=== PATIENT | female | born 1990 | race Asian ===

== ENCOUNTER 2017-06-30 13:09 | Emergency (ER) | payer BC, MEDICAID ==
[~2017-06-30] VITALS: Ht 157.5 cm; Wt 100.4 kg
[~2017-06-30 13:09] MED LIST: MEDR150D3 IM; PAIN MED PEG
[2017-06-30 14:34] LABS: BASOPHILS # (AUTO) 0.02 x10^3/uL (0-0.1); BASOPHILS % (AUTO) 0 % (0-1); EOSINOPHILS # (AUTO) 0.18 x10^3/uL (0-0.4); EOSINOPHILS % (AUTO) 2 % (1-7); LYMPHOCYTES # (AUTO) 1.05 x10^3/uL (1-3.4); LYMPHOCYTES % (AUTO) 13 % (22-44); MD NO; MEAN CORPUSCULAR HEMOGLOBIN 27.5 pg (27.0-34.8); MEAN CORPUSCULAR HGB CONC 33.2 g/dL (32.4-35.8); MEAN CORPUSCULAR VOLUME 82.8 fL (80-100); MEAN PLATELET VOLUME 7.5 fL (7.4-10.4); MONOCYTES # (AUTO) 0.68 x10^3/uL (0.2-0.8); MONOCYTES % (AUTO) 9 % (2-9); NEUTROPHILS % (AUTO) 76 % (42-75); PLATELET COUNT 315 x10^3/uL (130-400); RED BLOOD COUNT 5.49 x10^6/uL (3.82-5.3); RED CELL DISTRIBUTION WIDTH 16.3 % (9.6-15.2)
[2017-06-30 14:46] LABS: ALBUMIN 3.8 g/dL (3.4-5.0); ANION GAP 8 mmol/L (5-15); CALCIUM 8.5 mg/dL (8.5-10.1); CHLORIDE 104 mmol/L (98-107); CREATININE 0.72 mg/dL (0.55-1.02)
[2017-06-30 15:00] VITALS: BP 133/74
[2017-06-30 16:14] LABS: MICROSCOPIC INDICATED
[2017-06-30 16:23] LABS: CULTURE INDICATED? NO
== END 2017-06-30 17:07 | disposition home or self-care (01) ==
LOC: ED 16:09
DX: O20.0 Threatened abortion (principal)
CPT/HCPCS: 36415; 76801; 80048; 81001; 82040; 84702; 85025; 86901; 99285

== ENCOUNTER 2017-07-28 23:22 | Emergency (ER) | payer BC ==
[~2017-07-28] VITALS: Ht 157.5 cm; Wt 98.9 kg
[2017-07-29] MEDS ORDERED: SODIUM CHLORIDE FLUSH 10ML SYR IVF ONE (00:30)
[2017-07-29] MEDS ORDERED: SODIUM CHLORIDE 0.9% 1,000ML IVBOLUS ONE (00:30)
[2017-07-29] MEDS ORDERED: ONDANSETRON 2MG/ML, 2ML IVPush ONE (00:30)
[2017-07-29] MEDS ORDERED: MAALOX/HYOSCYAMINE/LIDOCAINE 45 ML BTL ONE (00:47)
[2017-07-29 00:50] LABS: ALANINE AMINOTRANSFERASE 19 U/L (12-78); ANION GAP 6 mmol/L (5-15); CALCIUM 8.7 mg/dL (8.5-10.1); CHLORIDE 107 mmol/L (98-107); CREATININE 0.53 mg/dL (0.55-1.02)
[2017-07-29 01:01] LABS: BASOPHILS # (AUTO) 0.02 x10^3/uL (0-0.1); BASOPHILS % (AUTO) 0 % (0-1); EOSINOPHILS # (AUTO) 0.36 x10^3/uL (0-0.4); EOSINOPHILS % (AUTO) 5 % (1-7); LYMPHOCYTES # (AUTO) 2.23 x10^3/uL (1-3.4); LYMPHOCYTES % (AUTO) 28 % (22-44); MD NO; MEAN CORPUSCULAR HGB CONC 33.8 g/dL (32.4-35.8); MEAN CORPUSCULAR VOLUME 82.8 fL (80-100); MEAN PLATELET VOLUME 7.4 fL (7.4-10.4); MONOCYTES # (AUTO) 0.57 x10^3/uL (0.2-0.8); MONOCYTES % (AUTO) 7 % (2-9); NEUTROPHILS # (AUTO) 4.83 x10^3/uL (1.8-6.8); NEUTROPHILS % (AUTO) 60 % (42-75); PLATELET COUNT 284 x10^3/uL (130-400); RED CELL DISTRIBUTION WIDTH 15.4 % (9.6-15.2)
[2017-07-29 01:03] LABS: MICROSCOPIC NOT IND
[2017-07-29 01:08] LABS: ALKALINE PHOSPHATASE 63 U/L (45-117); BILIRUBIN,TOTAL 0.2 mg/dL (0.2-1.0); TOTAL PROTEIN 6.8 g/dL (6.4-8.2)
[2017-07-29 01:08] LABS: CULTURE INDICATED? NO
[2017-07-29] MEDS ORDERED: ONDANSETRON ODT 4 MG ONE (01:15)
[2017-07-29 01:56] VITALS: BP 118/76
== END 2017-07-29 01:56 | disposition home or self-care (01) ==
LOC: ED 23:47
DX: O26.891 Other specified pregnancy related conditions, first trimester (principal); R10.84 Generalized abdominal pain; Z3A.12 12 weeks gestation of pregnancy; Z88.8 Allergy status to other drugs, medicaments and biological substances; Z90.49 Acquired absence of other specified parts of digestive tract
CPT/HCPCS: 36415; 76801; 80053; 81003; 84702; 85025; 86901; 96374; 99285; J2405; J7030

== ENCOUNTER 2017-10-08 22:56 | Outpatient (CLI) | payer BC ==
[~2017-10-08] VITALS: Ht 157.5 cm; Wt 101.8 kg
[2017-10-08 23:19] LABS: MICROSCOPIC NOT IND
[2017-10-08 23:26] VITALS: BP 118/64
[2017-10-08] MEDS ORDERED: ALBU6.7H INH (23:40)
== END 2017-10-09 00:09 | disposition home or self-care (01) ==
LOC: LDOP 22:56
PROVIDERS: ATTEND Obstetrics & Gynecology
DX: O26.892 Other specified pregnancy related conditions, second trimester (principal); R10.9 Unspecified abdominal pain; O13.2 Gestational [pregnancy-induced] hypertension without significant proteinuria, second trimester; O14.92 Unspecified pre-eclampsia, second trimester; Z3A.23 23 weeks gestation of pregnancy
CPT/HCPCS: 59025; 81003; 87086; 99211; G0463

== ENCOUNTER 2019-12-04 23:09 | Emergency (ER) | payer OTHER, MEDICAID ==
[~2019-12-04] VITALS: Ht 157.5 cm; Wt 104.0 kg
[~2019-12-04 23:09] MED LIST changes: +ALBU6.7H8 INH; +IBUP-1222 PO; +OXYC-302 PO; +SENN-92 PO
[2019-12-04 23:16] VITALS: BP 147/78
[2019-12-05 00:02] LABS: BASOPHILS # (AUTO) 0.03 x10^3/uL (0-0.1); BASOPHILS % (AUTO) 1 % (0-1); EOSINOPHILS # (AUTO) 0.11 x10^3/uL (0-0.4); EOSINOPHILS % (AUTO) 2 % (1-7); LYMPHOCYTES # (AUTO) 1.13 x10^3/uL (1-3.4); LYMPHOCYTES % (AUTO) 24 % (22-44); MD NO; MEAN CORPUSCULAR HEMOGLOBIN 27.1 pg (27.0-34.8); MEAN CORPUSCULAR HGB CONC 32.9 g/dL (32.4-35.8); MEAN CORPUSCULAR VOLUME 82.4 fL (80-100); MEAN PLATELET VOLUME 7.4 fL (7.4-10.4); MONOCYTES # (AUTO) 0.51 x10^3/uL (0.2-0.8); MONOCYTES % (AUTO) 11 % (2-9); NEUTROPHILS # (AUTO) 2.88 x10^3/uL (1.8-6.8); NEUTROPHILS % (AUTO) 62 % (42-75); PLATELET COUNT 257 x10^3/uL (130-400); RED BLOOD COUNT 5.09 x10^6/uL (3.82-5.3)
[2019-12-05 00:24] LABS: MICROSCOPIC INDICATED
[2019-12-05 01:12] LABS: ALANINE AMINOTRANSFERASE 28 U/L (12-78); ALBUMIN 3.5 g/dL (3.4-5.0); ANION GAP 6 mmol/L (5-15); CALCIUM 8.6 mg/dL (8.5-10.1); CHLORIDE 108 mmol/L (98-107); CREATININE 0.86 mg/dL (0.55-1.02)
[2019-12-05 01:30] LABS: ALKALINE PHOSPHATASE 58 U/L (45-117); BILIRUBIN,TOTAL 0.2 mg/dL (0.2-1.0); TOTAL PROTEIN 7.4 g/dL (6.4-8.2)
== END 2019-12-05 02:24 | disposition home or self-care (01) ==
LOC: ED 12-05 02:17
DX: O26.891 Other specified pregnancy related conditions, first trimester (principal); J45.909 Unspecified asthma, uncomplicated; R11.2 Nausea with vomiting, unspecified; R10.2 Pelvic and perineal pain; Z90.49 Acquired absence of other specified parts of digestive tract; Z3A.01 Less than 8 weeks gestation of pregnancy
CPT/HCPCS: 36415; 76801; 80053; 81001; 84702; 85025; 87086; 99284

== ENCOUNTER 2019-12-14 18:44 | Emergency (ER) | payer OTHER, MEDICAID ==
[~2019-12-14] VITALS: Ht 157.5 cm; Wt 101.0 kg
[2019-12-14] MEDS ORDERED: ONDANSETRON 2MG/ML, 2ML IVPush ONE (19:30)
[2019-12-14] MEDS ORDERED: SODIUM CHLORIDE 0.9% 1,000ML IVBOLUS ONE (19:30)
[2019-12-14 19:54] LABS: BASOPHILS # (AUTO) 0.02 x10^3/uL (0-0.1); BASOPHILS % (AUTO) 0 % (0-1); EOSINOPHILS # (AUTO) 0.02 x10^3/uL (0-0.4); EOSINOPHILS % (AUTO) 1 % (1-7); LYMPHOCYTES # (AUTO) 1.23 x10^3/uL (1-3.4); LYMPHOCYTES % (AUTO) 28 % (22-44); MD NO; MEAN CORPUSCULAR HEMOGLOBIN 26.9 pg (27.0-34.8); MEAN CORPUSCULAR HGB CONC 32.6 g/dL (32.4-35.8); MEAN CORPUSCULAR VOLUME 82.4 fL (80-100); MEAN PLATELET VOLUME 7.7 fL (7.4-10.4); MONOCYTES # (AUTO) 0.36 x10^3/uL (0.2-0.8); MONOCYTES % (AUTO) 8 % (2-9); NEUTROPHILS % (AUTO) 63 % (42-75); PLATELET COUNT 254 x10^3/uL (130-400); RED BLOOD COUNT 5.42 x10^6/uL (3.82-5.3); RED CELL DISTRIBUTION WIDTH 15.4 % (9.6-15.2)
[2019-12-14 20:01] LABS: ALANINE AMINOTRANSFERASE 130 U/L (12-78); ALBUMIN 3.3 g/dL (3.4-5.0); ANION GAP 7 mmol/L (5-15); CALCIUM 8.1 mg/dL (8.5-10.1); CHLORIDE 106 mmol/L (98-107); CREATININE 0.72 mg/dL (0.55-1.02)
[2019-12-14 20:04] LABS: ALKALINE PHOSPHATASE 73 U/L (45-117); BILIRUBIN,TOTAL 0.5 mg/dL (0.2-1.0); TOTAL PROTEIN 7.5 g/dL (6.4-8.2)
[2019-12-14] MEDS ORDERED: ONDANSETRON 2MG/ML, 2ML ONE (20:04)
[2019-12-14 20:51] LABS: MICROSCOPIC INDICATED
--- NOTE | 2019-12-14 21:18 | NUR ---
Pt states she no longer feels nauseated, resting comfortably on gurney.
[2019-12-14 21:26] VITALS: BP 115/77
== END 2019-12-14 21:39 ==
LOC: ED 21:33
DX: O99.611 Diseases of the digestive system complicating pregnancy, first trimester (principal); A08.4 Viral intestinal infection, unspecified; R19.7 Diarrhea, unspecified; Z3A.08 8 weeks gestation of pregnancy; Z90.49 Acquired absence of other specified parts of digestive tract
CPT/HCPCS: 36415; 76700; 80053; 81001; 85025; 87086; 96361; 96374; 99284; J2405; J7030

== ENCOUNTER 2020-06-24 11:48 | Outpatient (CLI) | payer OTHER, MEDICAID ==
[~2020-06-24] VITALS: Ht 157.5 cm; Wt 114.5 kg
[~2020-06-24 11:48] MED LIST changes: -OXYC-302 PO; +OXYC1TAB14 PO
== END 2020-06-24 13:05 | disposition home or self-care (01) ==
LOC: LDOP 11:48
PROVIDERS: ATTEND Obstetrics & Gynecology
DX: O36.5930 Maternal care for other known or suspected poor fetal growth, third trimester, not applicable or unspecified (principal); Z3A.37 37 weeks gestation of pregnancy
CPT/HCPCS: 59025

== ENCOUNTER 2020-07-02 12:24 | Outpatient (CLI) | payer OTHER, MEDICAID ==
[~2020-07-02] VITALS: Ht 157.5 cm; Wt 114.0 kg
[2020-07-02 12:50] VITALS: BP 122/80
[2020-07-02 13:01] LABS: BASOPHILS % (AUTO) 0 % (0-1); EOSINOPHILS % (AUTO) 3 % (1-7); LYMPHOCYTES % (AUTO) 20 % (22-44); MEAN CORPUSCULAR HEMOGLOBIN 27.4 pg (27.0-34.8); MEAN CORPUSCULAR HGB CONC 32.7 g/dL (32.4-35.8); MEAN PLATELET VOLUME 6.6 fL (7.4-10.4); MONOCYTES % (AUTO) 10 % (2-9); NEUTROPHILS % (AUTO) 67 % (42-75); PLATELET COUNT 267 x10^3/uL (130-400); RED BLOOD COUNT 4.42 x10^6/uL (3.82-5.3); RED CELL DISTRIBUTION WIDTH 13.5 % (9.6-15.2)
[2020-07-02 13:04] LABS: MD NO
[2020-07-02 13:11] LABS: MICROSCOPIC INDICATED
[2020-07-02 13:11] LABS: ALANINE AMINOTRANSFERASE 13 U/L (12-78); ALBUMIN 2.4 g/dL (3.4-5.0); ANION GAP 4 mmol/L (5-15); CHLORIDE 109 mmol/L (98-107); CREATININE 0.58 mg/dL (0.55-1.02)
[2020-07-02 13:12] LABS: ALKALINE PHOSPHATASE 116 U/L (45-117); BILIRUBIN,TOTAL 0.2 mg/dL (0.2-1.0); TOTAL PROTEIN 6.5 g/dL (6.4-8.2)
== END 2020-07-02 14:35 | disposition home or self-care (01) ==
LOC: LDOP 12:24
PROVIDERS: ATTEND Obstetrics & Gynecology
DX: O16.3 Unspecified maternal hypertension, third trimester (principal); Z3A.36 36 weeks gestation of pregnancy
CPT/HCPCS: 36415; 59025; 76819; 80053; 81001; 82570; 84156; 84550; 85025; 87086

== ENCOUNTER 2020-07-19 05:37 | Inpatient (IN) | payer OTHER, MEDICAID ==
[~2020-07-19] VITALS: Ht 157.5 cm; Wt 118.1 kg
[2020-07-19] MEDS ORDERED: NEWBORN KIT ONE (05:43)
[2020-07-19] MEDS ORDERED: OXYTOCIN 30U/ 0.9% NaCL 500ML 500 ML ONE (05:44)
[2020-07-19] MEDS ORDERED: METOCLOPRAMIDE 5 MG/ML, 2ML ONE (05:44)
[2020-07-19] MEDS ORDERED: SODIUM CITRATE/CITRIC ACID 15 ML UDC ONE ×2 (05:44)
[2020-07-19 05:50] VITALS: BP 129/62
[2020-07-19] MEDS ORDERED: SODIUM CITRATE/CITRIC ACID 30 ML UDC PO ONE (06:00)
[2020-07-19] MEDS ORDERED: METOCLOPRAMIDE 5 MG/ML, 2ML IV ONE (06:00)
[2020-07-19] MEDS ORDERED: LACTATED RINGERS 1,000 ML IV SCH (06:00)
[2020-07-19] MEDS ORDERED: LACTATED RINGERS 1,000 ML IVBOLUS ONE (06:00)
[2020-07-19] MEDS ORDERED: PREN1TAB62 PO (06:04)
[2020-07-19 06:17] LABS: BASOPHILS % (AUTO) 0 % (0-1); EOSINOPHILS % (AUTO) 2 % (1-7); LYMPHOCYTES % (AUTO) 24 % (22-44); MEAN CORPUSCULAR HEMOGLOBIN 27.4 pg (27.0-34.8); MEAN CORPUSCULAR HGB CONC 32.9 g/dL (32.4-35.8); MEAN PLATELET VOLUME 6.8 fL (7.4-10.4); MONOCYTES % (AUTO) 7 % (2-9); NEUTROPHILS % (AUTO) 66 % (42-75); PLATELET COUNT 283 x10^3/uL (130-400); RED BLOOD COUNT 4.58 x10^6/uL (3.82-5.3); RED CELL DISTRIBUTION WIDTH 13.8 % (9.6-15.2)
[2020-07-19 06:38] LABS: MD NO
[2020-07-19] MEDS ORDERED: EPINEPHRINE 1 MG/ML, 1ML ONE (07:12)
[2020-07-19] MEDS ORDERED: FENTANYL PF 100 MCG/2ML ONE (07:12)
[2020-07-19] MEDS ORDERED: EPHEDRINE 50 MG/ML, 1ML ONE (07:12)
[2020-07-19] MEDS ORDERED: OXYTOCIN 10 UNITS/ML, 1ML ONE (07:12)
[2020-07-19] MEDS ORDERED: CEFAZOLIN 1,000 MG ONE (07:12)
[2020-07-19] MEDS ORDERED: CARBOPROST TROMETHAMINE 250 MCG/ML, 1ML IM PRN (07:30)
[2020-07-19] MEDS ORDERED: EPHEDRINE 50 MG/ML, 1ML IVPush PRN (07:30)
[2020-07-19] MEDS ORDERED: MEPERIDINE/PF 25MG/0.5ML IVPush PRN (07:30)
[2020-07-19] MEDS ORDERED: MISOPROSTOL 200 MCG TABLET PR PRN (07:30)
[2020-07-19] MEDS ORDERED: morphine SULFATE 10 MG/ML, 1ML IVPush PRN ×2 (07:30)
[2020-07-19] MEDS ORDERED: ACETAMINOPHEN 325 MG TABLET PO PRN (07:30)
[2020-07-19] MEDS ORDERED: ONDANSETRON 2MG/ML, 2ML IVPush PRN (07:30)
[2020-07-19] MEDS ORDERED: FENTANYL PF 100 MCG/2ML IV PRN (07:30)
[2020-07-19] MEDS ORDERED: ONDANSETRON 2MG/ML, 2ML IV PRN (07:30)
[2020-07-19] MEDS ORDERED: IBUPROFEN 600 MG TABLET PO PRN (07:30)
[2020-07-19] MEDS ORDERED: OXYcodone 5 MG/5 ML ORAL.SOL UDC PO PRN (07:30)
[2020-07-19] MEDS ORDERED: METHYLERGONOVINE 0.2 MG/ML IM PRN (07:30)
[2020-07-19] MEDS ORDERED: KETOROLAC 30 MG/1 ML ONE (08:03)
[2020-07-19] MEDS: PRENATAL VIT/IRON/FA 1 EACH TABLET PO SCH (09:00)
[2020-07-19] MEDS: LACTATED RINGERS 1,000 ML IV SCH ×4 (09:26→23:30)
[2020-07-19] MEDS: OXYTOCIN 30U/ 0.9% NaCL 500ML 500 ML IV SCH ×2 (09:26→21:50)
[2020-07-19 10:30] VITALS: BP 111/56
[2020-07-19] MEDS: KETOROLAC 30 MG/1 ML IVPush SCH ×2 (14:28→20:54)
[2020-07-19] MEDS: SIMETHICONE 80 MG CHEW TAB PO PRN (15:15)
[2020-07-19] MEDS: OXYcodone/APAP 5/325MG TABLET PO PRN ×2 (15:15→20:55)
[2020-07-19 15:17] VITALS: BP 134/80
[2020-07-19 16:02] LABS: BASOPHILS % (AUTO) 0 % (0-1); EOSINOPHILS % (AUTO) 1 % (1-7); LYMPHOCYTES % (AUTO) 10 % (22-44); MEAN CORPUSCULAR HEMOGLOBIN 27.2 pg (27.0-34.8); MEAN CORPUSCULAR HGB CONC 32.7 g/dL (32.4-35.8); MEAN PLATELET VOLUME 6.8 fL (7.4-10.4); MONOCYTES % (AUTO) 7 % (2-9); NEUTROPHILS % (AUTO) 82 % (42-75); PLATELET COUNT 220 x10^3/uL (130-400); RED BLOOD COUNT 4.29 x10^6/uL (3.82-5.3); RED CELL DISTRIBUTION WIDTH 14.4 % (9.6-15.2)
[2020-07-19 16:03] LABS: MD NO
[2020-07-19 19:25] VITALS: BP 124/78
[2020-07-20] VITALS: BP 118/77
[2020-07-20] MEDS: OXYcodone/APAP 5/325MG TABLET PO PRN ×5 (01:20→18:13)
[2020-07-20] MEDS: KETOROLAC 30 MG/1 ML IVPush SCH ×4 (02:52→20:32)
[2020-07-20] MEDS: OXYTOCIN 30U/ 0.9% NaCL 500ML 500 ML IV SCH ×3 (03:30→23:30)
[2020-07-20] MEDS: LACTATED RINGERS 1,000 ML IV SCH ×6 (03:30→23:30)
[2020-07-20 04:25] VITALS: BP 130/85
[2020-07-20 07:00] VITALS: BP 126/75
[2020-07-20] MEDS: DOCUSATE 100 MG CAPSULE PO PRN ×2 (07:14→19:35)
[2020-07-20] MEDS: PRENATAL VIT/IRON/FA 1 EACH TABLET PO SCH (07:14)
[2020-07-20] MEDS: SIMETHICONE 80 MG CHEW TAB PO PRN (19:35)
[2020-07-20 19:46] VITALS: BP 121/83
[2020-07-21] MEDS: OXYcodone/APAP 5/325MG TABLET PO PRN ×2 (00:03→15:53)
[2020-07-21] MEDS: KETOROLAC 30 MG/1 ML IVPush SCH ×2 (02:19→08:17)
[2020-07-21] MEDS: LACTATED RINGERS 1,000 ML IV SCH ×2 (06:25→09:30)
[2020-07-21 08:12] VITALS: BP 122/79
[2020-07-21] MEDS: PRENATAL VIT/IRON/FA 1 EACH TABLET PO SCH (08:17)
[2020-07-21] MEDS: DOCUSATE 100 MG CAPSULE PO PRN (08:17)
[2020-07-21] MEDS: OXYTOCIN 30U/ 0.9% NaCL 500ML 500 ML IV SCH (09:30)
[2020-07-21] MEDS ORDERED: PREN-75 PO (14:21)
[2020-07-21] MEDS ORDERED: OXYC1TAB14 PO (14:21)
[2020-07-21] MEDS ORDERED: DOCU-131 PO (14:21)
[2020-07-21] MEDS ORDERED: IBUP-1222 PO (14:21)
[2020-07-21] MEDS ORDERED: SIME80TA16 PO (14:21)
== END 2020-07-21 16:30 | disposition home or self-care (01) | DRG 785 ==
LOC: LDIP 05:37 → 2NW 10:29
PROVIDERS: ADMIT Obstetrics & Gynecology; ATTEND Obstetrics & Gynecology
PROC: 0UB70ZZ Excision of Bilateral Fallopian Tubes, Open Approach (ICD-10-PCS; principal; 2020-07-19)
PROC: 10D00Z1 Extraction of Products of Conception, Low, Open Approach (ICD-10-PCS; 2020-07-19)
DX: O34.211 Maternal care for low transverse scar from previous cesarean delivery (principal); Z30.2 Encounter for sterilization; Z37.0 Single live birth; Z3A.39 39 weeks gestation of pregnancy; Z20.822 Contact with and (suspected) exposure to COVID-19
CPT/HCPCS: 36415; 85025; 86592; 86850; 86900; 87635; 88302; G0378; J0171; J0690; J1885; J2405; J3010; J2590; J2765; J7120